=== PATIENT | female | born 1940 | race Caucasian/White ===

== ENCOUNTER 2019-01-05 12:34 | Emergency (ER) | payer MEDICARE, BC ==
[2019-01-05 13:32] LABS: INR 2.36; PROTIME 25.9 Sec (11.9-14.9)
[2019-01-05 13:33] LABS: PARTIAL THROMBOPLASTIN TIME 35.5 Sec (23.0-35.0)
== END 2019-01-05 14:02 | disposition home or self-care (01) ==
LOC: E/R 12:34
DX: S00.83XA Contusion of other part of head, initial encounter (principal); I10 Essential (primary) hypertension; W18.30XA Fall on same level, unspecified, initial encounter; Y92.9 Unspecified place or not applicable; Z79.01 Long term (current) use of anticoagulants
CPT/HCPCS: 70450; 85610; 85730; 99284-25